=== PATIENT | female | born 1985 ===

== ENCOUNTER 2019-02-12 13:57 | Outpatient (REF) | payer MEDICAID, SELFPAY ==
[2019-02-12 21:00] LABS: Abs Immature Grans 0.01 k/cumm (0.0-0.09); Absolute Basophil Count 0.02 k/cumm (0.0-0.2); Absolute Lymphocyte Count 1.67 k/cumm (1.2-3.4); Absolute Monocyte Count 0.42 k/cumm (0.11-0.7); Absolute Neutrophil Count 4.75 k/cumm (1.2-6.7); Basophils % 0.3; Eosinophils % 1.4; HCT 39.1 % (36.0-46.0); HGB 13.5 g/dL (12.0-15.5); Immature Grans % 0.1; Mean Corp. HGB Concentration 34.5 g/dL (32.0-36.0); Mean Corpuscular Hemoglobin 31.6 pg (27.0-33.0); Mean Corpuscular Volume 91.6 fL (80-95); Mean Platelet Volume 11.3 fL (8.0-11.0); Neutrophils % 68.2; Platelet Count 333 x1000/uL (130-400); RBC 4.27 m/cumm (4.00-5.20); RBC Distribution Width 12.2 % (11.7-14.6); White Blood Cell Count 6.97 k/cumm (4.4-10.8)
[2019-02-13 06:44] LABS: TSH 2.33 uIU/mL (0.358-3.74)
[2019-02-14 12:04] LABS: HIV-1/2 Ag & Ab Screen Negative (NEGAT)
== END 2019-02-12 14:17 ==
LOC: NCHCN 13:57
PROVIDERS: Visit Provider Registered Nurse
DX: R61 Generalized hyperhidrosis (principal); E03.9 Hypothyroidism, unspecified
CPT/HCPCS: 87389; 84443; 85025

== ENCOUNTER 2020-11-27 09:17 | Outpatient (REF) | payer MEDICAID, SELFPAY ==
--- NOTE | 2020-11-27 08:45 | PAPFT_PTH ---
PATIENT: Lisa Gonzalez LOC: [facility] U#:[id number] AGE/SX: 35/F ROOM: RE11/27/[address]: Deb Lenz : 1985 BED: DIS: 11/27/2020 SPEC #: [id number] RECD: 11/27/20 13:01 STATUS: ELI RECarmelo #: [id number] DAVINA: 11/27/20 08:[address]: Deb Lenz DEPT: [facility] Cytology RECD BY: Vannessa Tai Tissues: 1 - CX/ENDOCX FOR PAP SMEARS Procedures: PAP THIN PREP/[facility] Screening HPV DNA PROBE Comments: [id number]
== END 2020-11-27 09:37 ==
LOC: NCHCN 09:17
PROVIDERS: Visit Provider Registered Nurse
DX: Z12.4 Encounter for screening for malignant neoplasm of cervix (principal); Z11.51 Encounter for screening for human papillomavirus (HPV)
CPT/HCPCS: 88142; 87624

== ENCOUNTER 2021-03-17 09:29 | Outpatient (REF) | payer MEDICAID, SELFPAY ==
[2021-03-17 13:14] LABS: ESR 2 mm//hr (0-20)
[2021-03-17 13:58] LABS: C-Reactive Protein < 0.05 mg/dL (0.0-0.3)
== END 2021-03-17 09:30 | disposition home or self-care (01) ==
LOC: NCHCN 09:29
PROVIDERS: Visit Provider Registered Nurse
DX: R07.89 Other chest pain (principal)
CPT/HCPCS: 85652; 86140

== ENCOUNTER 2022-05-13 18:23 | Outpatient (REF) | payer MEDICAID, SELFPAY ==
[2022-05-13 21:26] LABS: Abs Immature Grans 0.03 10^3/uL (0.0-0.06); Absolute Basophil Count 0.03 10^3/uL (0.0-0.2); Absolute Eosinophil Count 0.22 10^3/uL (0.0-0.7); Absolute Lymphocyte Count 1.63 10^3/uL (1.2-3.4); Absolute Monocyte Count 0.68 10^3/uL (0.1-0.8); Absolute Neutrophil Count 6.58 10^3/uL (1.2-6.7); Basophils % 0.3; Eosinophils % 2.4; HCT 37.1 % (36.0-46.0); HGB 13.2 g/dL (11.2-15.7); Immature Grans % 0.3; Lymphocytes % 17.8; MCH 33.4 pg (27.0-33.0); MCHC 35.6 % (32.0-36.0); MCV 94 fL (80-95); MPV 11.3 fL (8.0-11.0); Monocytes % 7.4; Neutrophils % 71.8; Platelet Count 236 10^3/uL (130-400); RBC 3.95 10^6/uL (3.93-5.22); RDW 11.8 % (11.7-14.6); RDW-SD 41.3 fL; WBC 9.17 10^3/uL (4.4-10.8)
[2022-05-13 21:37] LABS: ALT 22 U/L (14-59); AST 17 U/L (15-37); Albumin 3.9 g/dL (3.4-5.0); Alkaline Phosphatase 53 U/L (46-116); Anion Gap 7.8 mmol/L (3-11); BUN 18 mg/dL (7-18); Bilirubin, Total 0.2 mg/dL (0.2-1.0); CO2 27.2 mmol/L (21.0-32.0); CREATININE 0.9 mg/dL (0.55-1.02); Calcium 9.1 mg/dL (8.5-10.1); Chloride 102 mmol/L (98-107); Glucose 107 mg/dL (74-106); Lipase 89 U/L (73-393); Potassium 3.6 mmol/L (3.5-5.1); Sodium 137 mmol/L (136-145); Total Protein 6.8 g/dL (6.4-8.2)
== END 2022-05-13 18:24 | disposition home or self-care (01) ==
LOC: NCHCN 18:23
PROVIDERS: Visit Provider Registered Nurse
DX: R59.0 Localized enlarged lymph nodes (principal); R31.9 Hematuria, unspecified; Z85.3 Personal history of malignant neoplasm of breast
CPT/HCPCS: 80053; 83690; 85025

== ENCOUNTER 2022-09-06 13:49 | Outpatient (REF) | payer MEDICAID, SELFPAY ==
[2022-09-06 16:12] LABS: Abs Immature Grans 0.01 10^3/uL (0.0-0.06); Absolute Basophil Count 0.03 10^3/uL (0.0-0.2); Absolute Eosinophil Count 0.24 10^3/uL (0.0-0.7); Absolute Lymphocyte Count 1.09 10^3/uL (1.2-3.4); Absolute Monocyte Count 0.38 10^3/uL (0.1-0.8); Absolute Neutrophil Count 2.65 10^3/uL (1.2-6.7); Basophils % 0.7; Eosinophils % 5.5; HCT 37.2 % (36.0-46.0); HGB 12.9 g/dL (11.2-15.7); Immature Grans % 0.2; Lymphocytes % 24.8; MCH 32.8 pg (27.0-33.0); MCHC 34.7 % (32.0-36.0); MCV 95 fL (80-95); MPV 11.3 fL (8.0-11.0); Monocytes % 8.6; Neutrophils % 60.2; Platelet Count 252 10^3/uL (130-400); RBC 3.93 10^6/uL (3.93-5.22); RDW 11.9 % (11.7-14.6); RDW-SD 41.5 fL
[2022-09-06 16:22] LABS: ESR 2 mm/hr (0-20)
[2022-09-06 16:30] LABS: ALT 24 U/L (14-59); AST 24 U/L (15-37); Albumin 3.9 g/dL (3.4-5.0); Alkaline Phosphatase 40 U/L (46-116); BUN 14 mg/dL (7-18); Bilirubin, Total 0.3 mg/dL (0.2-1.0); CREATININE 0.8 mg/dL (0.55-1.02); Calcium 8.9 mg/dL (8.5-10.1); Chloride 106 mmol/L (98-107); Estimated GFR 97.26 (mL/min/1.73m2); Glucose 97 mg/dL (74-106); Potassium 3.6 mmol/L (3.5-5.1); Sodium 139 mmol/L (136-145)
[2022-09-06 16:32] LABS: C-Reactive Protein < 0.05 mg/dL (0.0-0.3)
== END 2022-09-06 13:50 | disposition home or self-care (01) ==
LOC: NCHCN 13:49
PROVIDERS: Visit Provider Nurse Practitioner Family
DX: R52 Pain, unspecified (principal)
CPT/HCPCS: 80053; 85652; 85025; 86140

== ENCOUNTER 2024-07-19 13:25 | Outpatient (REF) | payer MEDICAID, SELFPAY ==
[2024-07-19 15:03] LABS: Abs Immature Grans 0.01 10^3/uL (0.0-0.06); Absolute Basophil Count 0.05 10^3/uL (0.0-0.2); Absolute Eosinophil Count 0.21 10^3/uL (0.0-0.7); Absolute Lymphocyte Count 1.55 10^3/uL (1.2-3.4); Absolute Monocyte Count 0.47 10^3/uL (0.1-0.8); Absolute Neutrophil Count 3.24 10^3/uL (1.2-6.7); Basophils % 0.9 %; Eosinophils % 3.8 %; HCT 40.9 % (36.0-46.0); HGB 13.9 g/dL (11.2-15.7); Immature Grans % 0.2 %; MCH 31.7 pg (27.0-33.0); MCV 93 fL (80-95); MPV 11.3 fL (8.0-11.0); Monocytes % 8.5 %; Neutrophils % 58.6 %; Platelet Count 263 10^3/uL (130-400); RBC 4.38 10^6/uL (3.93-5.22); RDW 12.7 % (11.7-14.6); RDW-SD 43.5 fL; WBC 5.53 10^3/uL (4.4-10.8)
[2024-07-19 15:20] LABS: ALT 29 U/L (14-59); AST 27 U/L (15-37); Albumin 3.8 g/dL (3.4-5.0); Alkaline Phosphatase 52 U/L (46-116); Anion Gap 7.2 mmol/L (3-11); BUN 14 mg/dL (7-18); Bilirubin, Total 0.36 mg/dL (0.2-1.0); CO2 26.8 mmol/L (21.0-32.0); CREATININE 0.8 mg/dL (0.55-1.02); Calcium 8.8 mg/dL (8.5-10.1); Chloride 105 mmol/L (98-107); Estimated GFR 96.06 (mL/min/1.73m2); Glucose 97 mg/dL (74-106); Potassium 4.1 mmol/L (3.5-5.1); Sodium 139 mmol/L (136-145); Total Protein 7.1 g/dL (6.4-8.2)
== END 2024-07-19 13:26 | disposition home or self-care (01) ==
LOC: NCHCN 13:25
PROVIDERS: PCP Family Medicine; Visit Provider Family Medicine
DX: R31.9 Hematuria, unspecified (principal)
CPT/HCPCS: 80053; 85025